=== PATIENT | female | born 1985 | race Caucasian/White ===

== ENCOUNTER 2025-02-18 18:27 | Emergency (ER) | payer BC, OTHER ==
[~2025-02-18] VITALS: Ht 157.5 cm; Wt 90.9 kg
[2025-02-18 18:33] VITALS: BP 127/77; PULSE 96; RESP 18; TEMP 98.9; O2SAT 99
[2025-02-18] MEDS ORDERED: BUPR-722 PO (18:37)
[2025-02-18] MEDS ORDERED: SERT-439 PO (18:37)
== END 2025-02-18 22:17 | disposition left against medical advice (07) ==
LOC: EMS 18:27
DX: F41.9 Anxiety disorder, unspecified (principal); R06.02 Shortness of breath; Z53.21 Procedure and treatment not carried out due to patient leaving prior to being seen by health care provider
CPT/HCPCS: 93005; 99281; Z7502